=== PATIENT | female | born 1970 | race Hispanic/Latino ===

== ENCOUNTER 2022-02-10 18:06 | Emergency (ER) | payer SELFPAY ==
[2022-02-10] MEDS ORDERED: Boostrix 0.5 ML (Tdap) VIAL (>/=7 yrs of age) ONE (18:38)
[2022-02-10] MEDS ORDERED: HYDROcodone/Acetaminophen 5/325 mg Tablet ONE (18:38)
[2022-02-10] MEDS ORDERED: Lidocaine 1% PF 5 ML VIAL ONE (19:24)
[2022-02-10] MEDS ORDERED: Bacitracin 1 PK ONE (19:57)
== END 2022-02-10 20:20 | disposition home or self-care (01) ==
LOC: ERS 18:06
DX: S81.012A Laceration without foreign body, left knee, initial encounter (principal); Z23 Encounter for immunization; W18.30XA Fall on same level, unspecified, initial encounter; W26.8XXA Contact with other sharp object(s), not elsewhere classified, initial encounter
CPT/HCPCS: 12002; 90471; 90715